=== PATIENT | female | born 1970 | race Hispanic/Latino ===

== ENCOUNTER 2016-09-02 15:40 | Emergency (ER) | payer OTHER, SELFPAY ==
[2016-09-02 16:59] LABS: Bilirubin Negative (Negative); Blood, Urine Trace (Negative); Glucose, Urine (Dipstick) Negative (Negative); Ketone, Urine Negative (Negative); Nitrite Negative (Negative); Protein, Urine (Dipstick) Negative (Neg-Trace); Urobilinogen 0.2 mg/dL (0.2-1.0)
[2016-09-02 17:16] LABS: Bacteria/HPF None Seen HPF (None Seen); RBC/HPF None Seen HPF (0-3); Squamous Epithelial None Seen HPF (0-3); WBC/HPF None Seen HPF (0-3)
--- NOTE | 2016-09-02 17:45 | ERRECORD ---
[facility] EMERGENCY RECORD HPI CONSTIPATION (16:00 WMEI) CHIEF COMPLAINT: Patient presents for evaluation of constipation, Patient presents for evaluation of abdominal pain, Patient presents for evaluation of no bowel movement. HISTORIAN: History provided by patient, History provided by patient's spouse. LOCATION: Symptoms are localized, most severe in the abdomen. QUALITY: Pain is dull in nature. TIME COURSE: Gradual onset of symptoms, 1, weeks ago, There has been no change in the patient's symptoms over time. ASSOCIATED WITH: Associated with nausea, Associated with vomiting. EXACERBATED BY: Patient's condition exacerbated by nothing. RELIEVED BY: Patient's condition relieved by nothing. ROS (16:01 WMEI) CONSTITUTIONAL: Historian denies chills, denies fever. EYES: Historian denies eye pain, denies eye discharge. ENT: Historian denies otalgia, denies rhinorrhea, denies sinus pain. CARDIOVASCULAR: Historian denies chest pain, no radiation. RESPIRATORY: Historian denies cough, denies shortness of breath. GI: Historian reports abdominal pain, reports constipation, denies nausea. GENITOURINARY FEMALE: Historian reports dysuria, denies urgency. MUSCULOSKELETAL: Historian denies arthralgias, denies joint swelling. SKIN: Historian denies skin changes, denies skin lesions. NEUROLOGIC: Historian denies confusion, denies mental status changes. ALLERGIC/IMMUNOLOGIC: Historian denies eczema, denies food allergies. PSYCHIATRIC: Historian denies alcohol abuse, denies anxiety. PAST MEDICAL HISTORY (15:49 KMOR) MEDICAL HISTORY: No past medical history. FEMALE SURGICAL HISTORY: Patient has no surgical history. PSYCHIATRIC HISTORY: No previous psychiatric history. KNOWN ALLERGIES NO KNOWN DRUG ALLERGIES (Unconfirmed) CURRENT MEDICATIONS (16:02 KMOR) None VITAL SIGNS VITAL SIGNS: BP: 144/90, Pulse: 70, Resp: 18, Temp: 97.7 (Oral), Pain: 0, O2 sat: 99 on Room Air, Time: 09/02/2016 15:48. (15:48 KMOR) BP: 134/86, Pulse: 75, Resp: 18, Pain: 0, O2 sat: 99 on Room Air, Time: &a-1R&a+25V*p+0X*u8186J*c202B*c15G*c2P*p-0X&a-25V&a+1R Name: Bev Shelton : 1970 F46 MedRec: [id number] AcctNum: [id number] Prepared: Angeline Sep 02, 2016 22:51 by Interface Page 1 of 3 pMD [facility] EMERGENCY RECORD 09/02/2016 16:56. (16:56 AHOO) PHYSICAL EXAM (16:02 WMEI) CONSTITUTIONAL: Vital signs reviewed, Patient appears non toxic, Patient alert and oriented to person, place and time. HEAD: Head exam included findings of head atraumatic, normocephalic. EYES: Conjunctiva normal, Sclera normal. ENT: Ear exam normal, Nose exam normal, Pharynx exam normal. NECK: Neck exam included findings of normal range of motion, Trachea midline. RESPIRATORY CHEST: Breath sounds clear, Chest exam included findings of chest movement symmetrical. CARDIOVASCULAR: Cardiovascular exam included findings of heart rate regular rate and rhythm, Heart sounds normal. ABDOMEN FEMALE: Abdominal exam included findings of abdomen tender, diffusely, Bowel sounds normal, no distension, Normal rectal exam, FULL OF SOFT STOOL. BACK: Back exam included findings of normal inspection, range of motion normal. UPPER EXTREMITY: Upper extremity exam included findings of inspection normal, Range of motion normal, Motor strength normal. LOWER EXTREMITY: Lower extremity exam included findings of inspection normal, Range of motion normal, Motor strength normal. NEURO: Indore coma scale 15, Neuro exam findings include patient oriented to person, place and time, Speech normal, Gait normal. SKIN: Skin exam included findings of skin warm, dry, and normal in color. LYMPHATIC: Lymphatic exam normal. PSYCHIATRIC: Psychiatric exam included findings of patient oriented to person place and time, Normal affect, Judgment normal, Insight normal. MEDICATION ADMINISTRATION SUMMARY Drug Name: magnesium citrate oral solution, Dose Ordered: 300 mL, Route: Oral, Status: Given, Time: 16:56 09/02/2016, Detailed record available in Medication Service section. PROBLEM LIST No recorded problems DIAGNOSIS (17:06 WMEI) FINAL: PRIMARY: Constipation. PRESCRIPTION No recorded prescriptions DISPOSITION PATIENT: Disposition Type: Discharge, Disposition: *Discharge &a-1R&a+25V*p+0X*s2271S*c202B*c15G*c2P*p-0X&a-25V&a+1R Name: Bev Shelton : 1970 F46 MedRec: [id number] AcctNum: [id number] Prepared: TueSep 02, 2016 22:51 by Interface Page 2 of 3 pMD [facility] EMERGENCY RECORD Home. (17:06 WMEI) Patient left the department. (17:19 KMOR) Green: AHOO=CARLEEN Rubalcava, November KMOR=KENTON Dubon, Jazmine WMEI=DO Velazquez William &a-1R&a+25V*p+0X*[id number]*c202B*c15G*c2P*p-0X&a-25V&a+1R Name: Bev Shelton : 1970 F46 MedRec: [id number] AcctNum: [id number] Prepared: TueSep 02, 2016 22:51 by Interface Page 3 of 3 pMD MTDD
--- NOTE | 2016-09-02 17:46 | PICIS ---
[facility] EMERGENCY RECORD TRIAGE (TueSep 02, 2016 15:45 KMOR) TRIAGE NOTES: NO BM X 1 WEEK JUST STARTED ZOFRAN 1 WEEK AGO. (TueSep 02, 2016 15:45 KMOR) PATIENT: NAME: Bev Shelton, AGE: 46, GENDER: female, : Tue1970, TIME OF GREET: TueSep 02, 2016 15:41, PREFERRED LANGUAGE: Hebrew, ETHNICITY: or , ECODE BILLING MAP: [facility], SSN: [id number], Zip Code: [address], KG WEIGHT: 68.49, PHONE: , , , PERSON ID: [id number], PCP: DONNA. (TueSep 02, 2016 15:45 KMOR) PAYMENT: [employer] Self Pay. (16:38) COMPLAINT: CONSTIPATION. (TueSep 02, 2016 15:45 KMOR) ADMISSION: URGENCY: 4 Non Urgent, ADMISSION SOURCE: Home, TRANSPORT: CAR, BED: ER -02. (TueSep 02, 2016 15:45 KMOR) ASSESSMENT: Assessment: A&XO4. RR EVEN AND UNLABORED., Symptoms began greater than 1 week ago. (15:49 KMOR) PAIN: No complaint of pain, Location BLOATED. (15:49 KMOR) SIRS SCORING: Heart Rate 55-109 (0), Temp range 96.8-101.1 (0), respiratory rate 12-24 (0), Mental Status altered: no (0), Infection or Suspected Infection: No. (15:49 KMOR) TRIAGE SCREENING: Patient denies suicidal ideation, Patient denies presence of domestic violence. (15:49 KMOR) PROVIDERS: TRIAGE NURSE: Jazmine Dubon RN. (TueSep 02, 2016 15:45 KMOR) VITAL SIGNS: BP 144/90, Pulse 70, Resp 18, Temp 97.7, (Oral), Pain 0, O2 Sat 99, on Room Air, Time 09/02/2016 15:48. (15:48 KMOR) PREVIOUS VISIT ALLERGIES: NO KNOWN DRUG ALLERGIES. (TueSep 02, 2016 15:45 KMOR) NO KNOWN DRUG ALLERGIES. (15:49 KMOR) KNOWN ALLERGIES NO KNOWN DRUG ALLERGIES (Unconfirmed) CURRENT MEDICATIONS (16:02 KMOR) None VITAL SIGNS VITAL SIGNS: BP: 144/90, Pulse: 70, Resp: 18, Temp: 97.7 (Oral), Pain: 0, O2 sat: 99 on Room Air, Time: 09/02/2016 15:48. (15:48 KMOR) BP: 134/86, Pulse: 75, Resp: 18, Pain: 0, O2 sat: 99 on Room Air, Time: 09/02/2016 16:56. (16:56 AHOO) NURSING ASSESSMENT: ABDOMEN (16:02 KMOR) CONSTITUTIONAL: Patient arrives ambulatory, Gait steady, History obtained from patient, Patient appears, uncomfortable, Patient cooperative, Patient alert, Oriented to person, place and time, Skin warm, Skin dry, Skin normal in color, Mucous membranes pink, Mucous membranes moist, Patient is well-groomed, Patient complains of Constipation, Patient reports no BM in 1 week, &a-1R&a+25V*p+0X*m1256G*c202B*c15G*c2P*p-0X&a-25V&a+1R Name: Bev Shelton : 1970 F46 MedRec: [id number] AcctNum: [id number] Prepared: Angeline Sep 02, 2016 22:57 by Interface Page 1 of 5 pMD [facility] EMERGENCY RECORD reports recently taking Zofran. Patient denies pain but reports bloating and some pain with urination. PAIN: dull pain, diffusely, Patient rates pain as 0 out of 10. ABDOMEN: Abdomen assessment findings include abdomen symmetrical, Abdomen soft, tender, diffusely, Bowel sounds, hypoactive, no associated nausea, no associated vomiting, Associated with constipation, Date of last bowel movement: 1 wek ago, Associated with appetite change, decrease. LMP: Last menstrual period is unknown. GENITOURINARY FEMALE: Associated with urinary complaints, dysuria. NURSING PROCEDURE: DISCHARGE NOTE (17:17 KMOR) DISCHARGE: Patient discharged to home, ambulating without assistance, family driving, accompanied by //partner, Summary of Care printed/ provided, Transition record given to patient, Discharge instructions given to patient, Simple or moderate discharge teaching performed, by KENTON Lucero, Discharge instructions and follow up reviewed with patient. Pt ambulatory to discharge desk., Above person(s) verbalized understanding of discharge instructions and follow-up care. BELONGINGS: Belongings remain with patient, Valuables remain with patient. NURSING PROCEDURE: NURSE NOTES NURSES NOTES: Notes: Patient ambulatory to bathroom with steady gait. (16:06 KMOR) Notes: Patient back to bathroom to attempt to give urine. (16:45 KMOR) Notes: Dr. Velazquez in to review results with patient. (17:09 KMOR) NURSING PROCEDURE: TRANSPORT TO TESTS PATIENT IDENTIFIER: Patient actively involved in identification process, Patient's identity verified by patient stating name, Patient's identity verified by patient stating date, Patient's identity verified by hospital ID bracelet, Patient's identity verified by family member. (16:20 AHOO) TRANSPORT TO TESTS: Patient transported to x-ray, via wheelchair, Accompanied by x-ray p 3 armament/ordnance ima technician. (16:20 AHOO) FOLLOW-UP: After procedure, patient returned to emergency department. (16:27 AHOO) NURSING PROCEDURE: URINE COLLECTION (16:52 KMOR) PATIENT IDENTIFIER: Patient actively involved in identification process, Patient's identity verified by patient stating name, Patient's identity verified by patient stating date. URINE COLLECTION FEMALE: Urine collected by mid-stream clean &a-1R&a+25V*p+0X*z0694J*c202B*c15G*c2P*p-0X&a-25V&a+1R Name: Bev Shelton : 1970 F46 MedRec: [id number] AcctNum: [id number] Prepared: TueSep 02, 2016 22:57 by Interface Page 2 of 5 pMD [facility] EMERGENCY RECORD catch, Output amount (mL) 100ml, urine yellow in color, and clear, Specimen labeled in the presence of the patient and sent to lab. ORDER DETAILS Order Name: Test, Urine (BHCG), Status: Active, Time: 15:59 09/02/2016, User: [facility], - Ordered for: DO Velazquez William, - Entered by: DO Velazquez William - [facility] Sep 02, 2016 15:59, - Quantity: 1, Order Name: Urinalysis w/ Rflx Microscopic, Status: Active, Time: 15:59 09/02/2016, User: [facility], - Ordered for: DO Velazquez William, - Entered by: DO Velazquez William - [facility] Sep 02, 2016 15:59, - Quantity: 1, Order Name: XR Abdomen 1 View, Status: Active, Time: 16:00 09/02/2016, User: [facility], - Ordered for: DO Velazquez William, - Entered by: DO Velazquez William - [facility] Sep 02, 2016 16:00, - Quantity: 1. MEDICATION ADMINISTRATION SUMMARY Drug Name: magnesium citrate oral solution, Dose Ordered: 300 mL, Route: Oral, Status: Given, Time: 16:56 09/02/2016, Detailed record available in Medication Service section. MEDICATION SERVICE (16:56 [facility]) magnesium citrate oral solution: Order: magnesium citrate oral solution (magnesium citrate) - Dose: 300 mL : Oral Schedule: Now Ordered by: Santiago Velazquez DO Entered by: Santiago Velazquez DO [facility] Sep 02, 2016 16:49 , Acknowledged by: Jazmine Dubon RN [facility] Sep 02, 2016 16:52 Documented as given by: Jazmine Dubon RN [facility] Sep 02, 2016 16:56 Patient, Medication, Dose, Route and Time verified prior to administration. Amount given: 300ml, Site: Medication administered P.O., Correct patient, time, route, dose and medication confirmed prior to administration, Patient advised of actions and side-effects prior to administration, Allergies confirmed and medications reviewed prior to administration, Patient in position of comfort, Side rails up, Cart in lowest position, Family at bedside. HPI CONSTIPATION (16:00 [facility]) CHIEF COMPLAINT: Patient presents for evaluation of constipation, Patient presents for evaluation of abdominal pain, Patient presents for evaluation of no bowel movement. HISTORIAN: History provided by patient, History provided by patient's spouse. LOCATION: &a-1R&a+25V*p+0X*v0317W*c202B*c15G*c2P*p-0X&a-25V&a+1R Name: Bev Shelton Domenico : 1970 F46 MedRec: [id number] AcctNum: [id number] Prepared: Angeline Sep 02, 2016 22:57 by Interface Page 3 of 5 pMD [facility] EMERGENCY RECORD Symptoms are localized, most severe in the abdomen. QUALITY: Pain is dull in nature. TIME COURSE: Gradual onset of symptoms, 1, weeks ago, There has been no change in the patient's symptoms over time. ASSOCIATED WITH: Associated with nausea, Associated with vomiting. EXACERBATED BY: Patient's condition exacerbated by nothing. RELIEVED BY: Patient's condition relieved by nothing. ROS (16:01 WMEI) CONSTITUTIONAL: Historian denies chills, denies fever. EYES: Historian denies eye pain, denies eye discharge. ENT: Historian denies otalgia, denies rhinorrhea, denies sinus pain. CARDIOVASCULAR: Historian denies chest pain, no radiation. RESPIRATORY: Historian denies cough, denies shortness of breath. GI: Historian reports abdominal pain, reports constipation, denies nausea. GENITOURINARY FEMALE: Historian reports dysuria, denies urgency. MUSCULOSKELETAL: Historian denies arthralgias, denies joint swelling. SKIN: Historian denies skin changes, denies skin lesions. NEUROLOGIC: Historian denies confusion, denies mental status changes. ALLERGIC/IMMUNOLOGIC: Historian denies eczema, denies food allergies. PSYCHIATRIC: Historian denies alcohol abuse, denies anxiety. PAST MEDICAL HISTORY (15:49 KMOR) MEDICAL HISTORY: No past medical history. FEMALE SURGICAL HISTORY: Patient has no surgical history. PSYCHIATRIC HISTORY: No previous psychiatric history. PHYSICAL EXAM (16:02 WMEI) CONSTITUTIONAL: Vital signs reviewed, Patient appears non toxic, Patient alert and oriented to person, place and time. HEAD: Head exam included findings of head atraumatic, normocephalic. EYES: Conjunctiva normal, Sclera normal. ENT: Ear exam normal, Nose exam normal, Pharynx exam normal. NECK: Neck exam included findings of normal range of motion, Trachea midline. RESPIRATORY CHEST: Breath sounds clear, Chest exam included findings of chest movement symmetrical. CARDIOVASCULAR: Cardiovascular exam included findings of heart rate regular rate and rhythm, Heart sounds normal. ABDOMEN FEMALE: Abdominal exam included findings of abdomen tender, diffusely, Bowel sounds normal, no distension, Normal rectal exam, FULL OF SOFT STOOL. &a-1R&a+25V*p+0X*a5893Y*c202B*c15G*c2P*p-0X&a-25V&a+1R Name: Bev Shelton : 1970 F46 MedRec: [id number] AcctNum: [id number] Prepared: TueSep 02, 2016 22:57 by Interface Page 4 of 5 pMD [facility] EMERGENCY RECORD BACK: Back exam included findings of normal inspection, range of motion normal. UPPER EXTREMITY: Upper extremity exam included findings of inspection normal, Range of motion normal, Motor strength normal. LOWER EXTREMITY: Lower extremity exam included findings of inspection normal, Range of motion normal, Motor strength normal. NEURO: Martine coma scale 15, Neuro exam findings include patient oriented to person, place and time, Speech normal, Gait normal. SKIN: Skin exam included findings of skin warm, dry, and normal in color. LYMPHATIC: Lymphatic exam normal. PSYCHIATRIC: Psychiatric exam included findings of patient oriented to person place and time, Normal affect, Judgment normal, Insight normal. EVENTS TRANSFER: Triage to Emergency Emergency Room -02. (TueSep 02, 2016 15:45 KMOR) Removed from Emergency Emergency Room -02. (17:19 KMOR) PROBLEM LIST No recorded problems DIAGNOSIS (17:06 WMEI) FINAL: PRIMARY: Constipation. DISPOSITION PATIENT: Disposition Type: Discharge, Disposition: *Discharge Home. (17:06 WMEI) Patient left the department. (17:19 KMOR) INSTRUCTION (17:07 WMEI) DISCHARGE: CONSTIPATION (ADULT). SPECIAL: Follow-up with your primary physician as needed. PRESCRIPTION No recorded prescriptions IMAGING (17:19 KMOR) *DISCHARGE INSTRUCTIONS RECEIPT: Image captured from scanner. *SUPPLY CHARGE SHEET: Image captured from scanner. ADMIN (22:43 WMEI) DIGITAL SIGNATURE: DO Velazquez William. Green: OO=CARLEEN Rubalcava, November KMOR=KENTON Dubon, Jazmine WMEI=DO Velazquez William &a-1R&a+25V*p+0X*o1613U*c202B*c15G*c2P*p-0X&a-25V&a+1R Name: Bev Shelton : 1970 F46 MedRec: [id number] AcctNum: [id number] Prepared: Angeline Sep 02, 2016 22:57 by Interface Page 5 of 5 pMD MTDD
--- NOTE | 2016-09-02 20:45 | RAD ---
ABDOMEN 09/02/16 Supine view of the abdomen are compared with a 09/19/09 study. The gas pattern is normal with no sign of obstruction. A moderate amount of fecal material is seen i n the colon. A calcific density to the left of L1 is probably medicine in gut. Otherwise, no calcifi cations of concern were noted. There is probably a phlebolith or two on the right in the pelvis. IMPRESSION: At most, mild constipation. POS: HOME
== END 2016-09-02 17:17 | disposition home or self-care (01) ==
LOC: BURERS 15:40
DX: K59.00 Constipation, unspecified (principal)
CPT/HCPCS: 74000; 81003; 81015; 81025; 99283

== ENCOUNTER 2016-11-05 16:03 | Outpatient (CLI) | payer OTHER, SELFPAY ==
[2016-11-05 17:20] LABS: CK (CPK) 217 U/L (29-168)
[2016-11-06 15:30] LABS: CRP (Inflammatory) Less than 0.50 mg/dL (= or < 0.5)
== END 2016-11-05 16:04 | disposition home or self-care (01) ==
LOC: HPCALD 16:03
PROVIDERS: ATTEND Family Medicine
DX: M25.50 Pain in unspecified joint (principal); M62.838 Other muscle spasm
CPT/HCPCS: 36415; 82550; 85652; 86038; 86140; 86430

== ENCOUNTER 2017-01-13 17:08 | Outpatient (CLI) | payer OTHER | END 2017-01-13 17:09 | disposition home or self-care (01) | LOC: HPCALD 17:08 | PROVIDERS: ATTEND Family Medicine | DX: Z01.419 Encounter for gynecological examination (general) (routine) without abnormal findings (principal) ==

== ENCOUNTER 2021-09-15 15:44 | Outpatient (CLI) | payer OTHER | END 2021-09-15 15:45 | disposition home or self-care (01) | LOC: BURRAD 15:44 | PROVIDERS: ATTEND Nurse Practitioner Family | DX: R10.9 Unspecified abdominal pain (principal); K59.00 Constipation, unspecified | CPT/HCPCS: 74018 ==